=== PATIENT | female | born 2000 ===

== ENCOUNTER → 2023-07-06 | Outpatient (CLI) | payer SELFPAY ==
[~2023-07-06] VITALS: Ht 160 cm; Wt 73.9 kg
[~2023-07-06] MED LIST: PREN1TAB79 PO
== END | disposition home or self-care (01) ==
LOC: PREOP 10:34
PROVIDERS: ATTEND Obstetrics & Gynecology
DX: Z01.818 Encounter for other preprocedural examination (principal)

== ENCOUNTER 2023-07-13 07:04 | Inpatient (IN) | payer OTHER ==
[~2023-07-13] VITALS: Ht 160 cm; Wt 74.9 kg
[2023-07-13] VITALS (10 sets, daily range): BP systolic 100–123; BP diastolic 57–77
[2023-07-13 08:05] LABS: AMORPHOUS SEDIMENT,UR FEW AMOR URATES /LPF; BACTERIA,URINE TRACE /HPF; BILIRUBIN,URINE NEGATIVE (NEGATIVE); CLARITY,URINE CLEAR; COLOR,URINE YELLOW; GLUCOSE, URINE (UA) NEGATIVE (NEGATIVE); KETONES,URINE NEGATIVE (NEGATIVE); LEUKOCYTE ESTERASE ,URINE NEGATIVE (NEGATIVE); NITRITE,URINE NEGATIVE (NEGATIVE); PROTEIN,URINE NEGATIVE (NEGATIVE); WBC,URINE RARE /HPF
[2023-07-13] MEDS: LACTATED RINGERS 1,000 ML 1,000 ML IV SCH ×2 (08:33→11:44)
[2023-07-13 10:11] LABS: HEMATOCRIT 40 % (35-52); HEMOGLOBIN 13.6 g/dL (11.5-16.0); MEAN CORPUSCULAR HEMOGLOBIN 30 pg (25-34); MEAN CORPUSCULAR HGB CONC 34 g/dL (32-36); MEAN CORPUSCULAR VOLUME 88 fL (80-99); MEAN PLATELET VOLUME 11.7 fL (9.0-12.2); PLATELET COUNT 205 10^3/uL (130-400); WHITE BLOOD COUNT 7.4 10^3/uL (4.3-11.0)
[2023-07-13] MEDS ORDERED: LACTATED RINGERS 1,000 ML 1,000 ML IV PRN (10:15)
[2023-07-13] MEDS ORDERED: METOCLOPRAMIDE INJ 10 MG/2 ML IV ONE (10:15)
[2023-07-13] MEDS ORDERED: CATHETER FLUSH 10 ML SYR IV SCH (10:15)
[2023-07-13] MEDS ORDERED: FAMOTIDINE INJ 20MG/2ML VIAL IV ONE (10:15)
[2023-07-13] MEDS ORDERED: CITRIC ACID/SODIUM CITRATE ORAL SOLN 30 ML PO ONE (10:15)
[2023-07-13] MEDS ORDERED: fentaNYL INJECTION 100 MCG/2 ML VIAL ONE (10:29)
[2023-07-13] MEDS ORDERED: OXYTOCIN DRIP PRE-MIX 1,000 ML IV ONE (10:30)
[2023-07-13] MEDS ORDERED: ceFAZolin INJECTION 2,000 MG in NS (IVPB) 50 ML 50 ML IV ONE ×2 (11:00→12:45)
--- NOTE | 2023-07-13 11:00 | History & Physical-OB/GYN ---
History of Present Illness History of Present Illness Reason for visit/HPI at 39wks presents with tocos since 1am. She has had two prior C- sections. Her cervix made slight change, so we will proceed with a RLTCS. She declines permanent sterilization. Date of Admission Jul 13, 2023 at 09:57 Date Seen by a Provider: Jul 13, 2023 Time Seen by a Provider: 10:30 I consulted on this patient on 07/13/23 10:30 Attending Physician No,Local Physician Admitting Physician Admitting Physician: Conner Ashley DO Attending Physician: Conner Ashley DO Consult Allergies and Home Medications Allergies Coded Allergies: No Known Allergies (Verified Allergy, Unknown, 07/09/23) Patient Home Medication List Home Medication List Reviewed: Yes Vit W-Ca,Fe,FA(<1 mg) ( Vitamins) 27 Mg Iron-800 Mcg Tablet, 1 EACH PO, (Reported) Entered as Reported by: Anne German on 07/09/23 0908 Past [id number] Hx Patient Social History Smoking Status: Never a Smoker 2nd Hand Smoke Exposure: No Seasonal Allergies Seasonal Allergies: No Surgeries Yes Appendectomy, Section Respiratory No Cardiovascular No Reproductive System Expected Date of Delivery: Jul 20, 2023 Hx : 3 Hx Para: 2 Genitourinary No Gastrointestinal Yes (FATTY LIVER) Musculoskeletal No Endocrine History of Endocrine Disorders: No HEENT History of HEENT Disorders: No Cancer No Psychosocial History of Psychiatric Problem: No Integumentary History of Skin or Integumenta: No Blood Transfusions History of Blood Disorders: No Review of Systems Constitutional: see HPI EENTM: see HPI Respiratory: see HPI Cardiovascular: see HPI Gastrointestinal: see HPI Genitourinary: see HPI Musculoskeletal: see HPI Skin: see HPI Psychiatric/Neurological: No Symptoms Reported, See HPI All Other Systems Reviewed Negative Unless Noted: Yes Physical Exam Physical Exam Vital Signs Vital Signs Date Time Temp Pulse Resp B/P (MAP) Pulse Ox O2 Delivery O2 Flow Rate FiO2 07/13/23 07:43 36.6 78 18 119/73 98 Room Air Capillary Refill : Less Than 3 Seconds Labs Laboratory Tests 07/13/23 07:30: Urine Color YELLOW, Urine Clarity CLEAR, Urine pH 7.0, Urine Specific [place] 1.015L, Urine Protein NEGATIVE, Urine Glucose (UA) NEGATIVE, Urine Ketones NEGATIVE, Urine Nitrite NEGATIVE, Urine Bilirubin NEGATIVE, Urine Urobilinogen 0.2, Urine Leukocyte Esterase NEGATIVE, Urine RBC (Auto) NEGATIVE, Urine RBC NONE, Urine WBC RARE, Urine Squamous Epithelial Cells 10-25H, Urine Crystals PRESENTH, Urine Amorphous Sediment FEW DARRON URATESH, Urine Bacteria TRACE, Urine Casts NONE, Urine Mucus SMALLH, Urine Culture Indicated NO 07/13/23 08:28: White Blood Count 7.4, Red Blood Count 4.51, Hemoglobin 13.6, Hematocrit 40, Mean Corpuscular Volume 88, Mean Corpuscular Hemoglobin 30, Mean Corpuscular Hemoglobin Concent 34, Red Cell Distribution Width 13.6, Platelet Count 205, Mean Platelet Volume 11.7 General Appearance: No Apparent Distress Respiratory: No Respiratory Distress Cardiovascular: Regular Rate, Rhythm Abdominal: non tender, soft Pelvic Exam: deferred Extremity: No Calf Tenderness Assessment/Plan Assessment and Plan IUP at 39wks prior x2 in early labor. Proceed with RLTCS. Dr Khan to assist. Admission Diagnosis IUP at 39wks. Previous x2, requests repeat LTCS. Early labor. GBS+. Language barrier. Admission Status: Inpatient Order (span 2 midnights) Reason for Inpatient Admission: IUP at 39wks. Early labor. Prior C/S x2, requesting repeat LTCS. CONNER ASHLEY DO Jul 13, 2023 11:00
[2023-07-13] MEDS ORDERED: ONDANSETRON INJECTION 4 MG/2 ML (SDV) ONE (11:31)
[2023-07-13] MEDS ORDERED: BUPIVACAINE 0.5% 30 ML VIAL ONE (11:31)
[2023-07-13] MEDS: OXYTOCIN DRIP PRE-MIX 500 ML IV SCH ×2 (11:40→12:00)
[2023-07-13] MEDS ORDERED: dexAMETHasone INJ 10 MG/ML 1 ML VIAL ONE (12:07)
[2023-07-13] MEDS ORDERED: NALOXONE 0.4 MG/ML 1 ML VIAL IV PRN (12:45)
[2023-07-13] MEDS ORDERED: Tetanus/Diphtheria/Pertussis (Acell) ADULT Vaccine 0.5 ML IM SCH (12:45)
[2023-07-13] MEDS ORDERED: MEASLES, MUMPS, RUBELLA VACCINE (MMR) SC SCH (12:45)
--- NOTE | 2023-07-13 12:47 | Cesarean Section Operative ---
TAM MCGINNIS MD,RESIDENT 07/13/23 1247: Procedure Procedure Note Pre-operative Diagnosis: Doris edwards a (23 /Para 3 / 2, Gestational Age (wks)39 with IUP at 39, previous x2, requesting RLTCS, GBS +, language barrier Post-operative Diagnosis: Early labor Procedure: Repeat low transverse section Physician: Conner Ashley DO Research Pharmacist: RAS LIVINGSTON Estimated blood loss: 250 mL Disposition: Stable Findings: Viable female infant, Apgars 8, 9, weight 6 lbs 14oz, intact placenta, 3vc, normal appearing uterus, tubes, and ovaries. Indications:Doris edwards a (23 /Para 3 / 2,Gestational Age (wks)39 presenting for early labor. Procedure Details: The patient was seen in pre-op and the procedure was discussed with the patient in full, including the risks, benefits, and alternatives. All questions were answered. The patient was taken to the operating room and a time out was performed, verifying patient and procedure. After spinal anesthesia was placed by our anesthesia colleagues, the patient was placed in the dorsal supine with leftward tilt for uterine displacement.~ Her abdomen was then prepped and draped in the typical sterile fashion. A Pfannenstiel skin incision was made using a scalpel and carried down through the underlying fascia. The fascia was incised in the midline and tented up using Roshan clamps. On both the inferior and superior fascia side the rectus muscle was dissected off bluntly and sharply using Velazquez scissors. The peritoneum was identified and entered bluntly in the midline. This was then stretched laterally using manual strength. After entering the abdominal cavity and confirming lack of intraperitoneal adhesions, the lower uterine segment was visualized. A bladder flap was created with the use of Metzenbaum scissors.~ A scalpel was utilized to make a low transverse uterine incision. Amniotomy was performed with an Allis clamp with return of clear fluid. The 's head was grasped and brought to the level of the incision. Fundal pressure was applied and was delivered without difficulty, with a nuchal cord x1. Mouth and nares were suctioned with bulb suction. After the umbilical cord was clamped and cut, the was handed off to the pediatric staff. A sample of cord blood was then obtained. The placenta was delivered intact via uterine massage. The uterus was exteriorized and cleared of all clots and debris. The uterine incision was closed using 0 Vicryl in a running locked fashion. A second imbricated layer was placed using 0 Vicryl in a running fashion as well. The uterus was flexed forward and the posterior rectouterine space was inspected and cleared of all clots and debris. Again the hysterotomy site was examined and hemostasis was observed. The bilateral tubes and ovaries appeared normal. The uterus was placed back into the abdominal cavity and abdominal gutters were cleared of all clots and debris. A final check of the uterine incision showed it to be hemostatic. The peritoneum was closed using 3-0 Vicryl in a running fashion. The fascia was closed with 2.0 Stratafix in a running fashion. The subcutaneous space was hemostatic. The subcutaneous space was closed with 3-0 Vicryl in several single interrupted stitches. The skin was then closed using 4-0 Monocryl in a running subcuticular fashion. The skin edges were reapproximated together and were hemostatic. A pressure dressing was applied. All sponge, lap and needle counts were correct at the end of the procedure per nursing. Vitals - Labs Vital Signs - I&O Vital Signs Date Time Temp Pulse Resp B/P (MAP) Pulse Ox O2 Delivery O2 Flow Rate FiO2 07/13/23 07:43 36.6 78 18 119/73 98 Room Air Labs Laboratory Tests 07/13/23 07:30: Urine Color YELLOW, Urine Clarity CLEAR, Urine pH 7.0, Urine Specific [place] 1.015L, Urine Protein NEGATIVE, Urine Glucose (UA) NEGATIVE, Urine Ketones NEGATIVE, Urine Nitrite NEGATIVE, Urine Bilirubin NEGATIVE, Urine Urobilinogen 0.2, Urine Leukocyte Esterase NEGATIVE, Urine RBC (Auto) NEGATIVE, Urine RBC NONE, Urine WBC RARE, Urine Squamous Epithelial Cells 10-25H, Urine Crystals PRESENTH, Urine Amorphous Sediment FEW DARRON URATESH, Urine Bacteria TRACE, Urine Casts NONE, Urine Mucus SMALLH, Urine Culture Indicated NO 07/13/23 08:28: White Blood Count 7.4, Red Blood Count 4.51, Hemoglobin 13.6, Hematocrit 40, Mean Corpuscular Volume 88, Mean Corpuscular Hemoglobin 30, Mean Corpuscular Hemoglobin Concent 34, Red Cell Distribution Width 13.6, Platelet Count 205, Mean Platelet Volume 11.7 CONNER ASHLEY DO 07/13/23 1251: Procedure Procedure Note I was present during the entire procedure. TAM MCGINNIS MD,RESIDENT Jul 13, 2023 12:47 CONNER ASHLEY DO Jul 13, 2023 12:51
[2023-07-13 14:13] LABS: BASOPHILS % (AUTO) 0 % (0-10); EOSINOPHILS % (AUTO) 0 % (0-10); HEMATOCRIT 41 % (35-52); HEMOGLOBIN 14.3 g/dL (11.5-16.0); LYMPHOCYTES # (AUTO) 1.2 10^3/uL (1.0-4.0); LYMPHOCYTES % (AUTO) 10 % (12-44); MEAN CORPUSCULAR HEMOGLOBIN 30 pg (25-34); MEAN CORPUSCULAR HGB CONC 35 g/dL (32-36); MEAN CORPUSCULAR VOLUME 87 fL (80-99); MEAN PLATELET VOLUME 10.6 fL (9.0-12.2); MONOCYTES # (AUTO) 0.3 10^3/uL (0.0-1.0); MONOCYTES % (AUTO) 2 % (0-12); NEUTROPHILS # (AUTO) 10.3 10^3/uL (1.8-7.8); NEUTROPHILS % (AUTO) 87 % (42-75); PLATELET COUNT 189 10^3/uL (130-400); WHITE BLOOD COUNT 11.8 10^3/uL (4.3-11.0)
[2023-07-13] MEDS: CATHETER FLUSH 10 ML SYR IV SCH (16:00)
[2023-07-13] MEDS: oxyCODONE IMMEDIATE RELEASE 5 MG TABLET PO PRN ×2 (16:12→20:27)
[2023-07-13] MEDS: IBUPROFEN 800 MG TABLET PO SCH (17:22)
[2023-07-13] MEDS: DOCUSATE SODIUM 100 MG CAPSULE PO SCH (20:20)
[2023-07-14] VITALS (7 sets, daily range): BP systolic 105–115; BP diastolic 55–65
[2023-07-14] MEDS: oxyCODONE IMMEDIATE RELEASE 5 MG TABLET PO PRN ×4 (01:00→17:23)
[2023-07-14] MEDS: IBUPROFEN 800 MG TABLET PO SCH ×3 (01:00→17:23)
[2023-07-14 06:06] LABS: BASOPHILS % (AUTO) 0 % (0-10); EOSINOPHILS % (AUTO) 0 % (0-10); HEMATOCRIT 37 % (35-52); HEMOGLOBIN 12.6 g/dL (11.5-16.0); LYMPHOCYTES # (AUTO) 2.2 10^3/uL (1.0-4.0); LYMPHOCYTES % (AUTO) 19 % (12-44); MEAN CORPUSCULAR HEMOGLOBIN 30 pg (25-34); MEAN CORPUSCULAR HGB CONC 34 g/dL (32-36); MEAN CORPUSCULAR VOLUME 87 fL (80-99); MEAN PLATELET VOLUME 10.8 fL (9.0-12.2); MONOCYTES # (AUTO) 0.9 10^3/uL (0.0-1.0); MONOCYTES % (AUTO) 8 % (0-12); NEUTROPHILS # (AUTO) 8.1 10^3/uL (1.8-7.8); NEUTROPHILS % (AUTO) 73 % (42-75); PLATELET COUNT 203 10^3/uL (130-400); WHITE BLOOD COUNT 11.1 10^3/uL (4.3-11.0)
[2023-07-14] MEDS: CATHETER FLUSH 10 ML SYR IV SCH ×2 (07:00→09:02)
[2023-07-14] MEDS: DOCUSATE SODIUM 100 MG CAPSULE PO SCH ×2 (08:46→21:35)
--- NOTE | 2023-07-14 09:22 | Postpartum Progress Note ---
Post Op Post-operative Day #[1] Subjective: Patient is without complaints. Ambulating, voiding after slade removed. Tolerating a regular diet without nausea or vomiting. Normal lochia. Pain is well controlled with oral pain medications. Passing flatus. [Bottle] feeding. [] Objective: [] Physical Exam: General - Alert and oriented, no apparent distress Abdomen - Soft, appropriately tender to palpation, non-distended, fundus firm at umbilicus Incision - clean, dry and intact; no erythema or induration, no drainage Extremities - no edema, negative Francisco's bilaterally Assessment: [] post-operative day # [1], status post [RLTCS]. Recovering well, hemodynamically stable Plan: Routine post-operative care. Encourage breast feeding. Encourage ambulation. VTE prophylaxis: SCDs. Ferrous sulfate supplementation. Plan for discharge [tomorrow] Vitals - Labs Vital Signs - I&O Vital Signs Date Time Temp Pulse Resp B/P (MAP) Pulse Ox O2 Delivery O2 Flow Rate FiO2 07/14/23 08:40 36.8 77 16 107/58 (74) 98 Room Air 07/14/23 06:18 37.1 69 16 108/61 (77) 98 Room Air 07/14/23 03:11 36.4 74 16 115/55 (75) 97 Room Air 07/13/23 23:17 36.2 68 16 120/58 (78) 99 Room Air 07/13/23 17:13 Room Air 07/13/23 15:55 36.8 70 16 109/57 (74) 98 Room Air 07/13/23 13:36 36.9 20 123/72 (89) 100 Room Air 07/13/23 13:36 Room Air 07/13/23 13:21 36.7 20 122/61 (81) 100 Room Air 07/13/23 13:21 Room Air 07/13/23 13:06 36.6 20 117/77 (90) 100 Room Air 07/13/23 13:06 Room Air 07/13/23 12:51 Room Air 07/13/23 12:51 36.4 18 115/61 (79) 100 Room Air 07/13/23 12:36 36.2 18 100/59 (73) 100 Room Air 07/13/23 12:36 Room Air I & O 07/14/23 07:00 Intake Total 4300 ml Output Total 2300 ml Balance 2000 ml Labs Laboratory Tests 07/13/23 14:05: White Blood Count 11.8H, Red Blood Count 4.76, Hemoglobin 14.3, Hematocrit 41, Mean Corpuscular Volume 87, Mean Corpuscular Hemoglobin 30, Mean Corpuscular Hemoglobin Concent 35, Red Cell Distribution Width 13.2, Platelet Count 189, Mean Platelet Volume 10.6, Immature Granulocyte % (Auto) 0, Neutrophils (%) (Auto) 87H, Lymphocytes (%) (Auto) 10L, Monocytes (%) (Auto) 2, Eosinophils (%) (Auto) 0, Basophils (%) (Auto) 0, Neutrophils # (Auto) 10.3H, Lymphocytes # (Auto) 1.2, Monocytes # (Auto) 0.3, Eosinophils # (Auto) 0.0, Basophils # (Auto) 0.0, Immature Granulocyte # (Auto) 0.0 07/14/23 05:47: White Blood Count 11.1H, Red Blood Count 4.22, Hemoglobin 12.6, Hematocrit 37, Mean Corpuscular Volume 87, Mean Corpuscular Hemoglobin 30, Mean Corpuscular Hemoglobin Concent 34, Red Cell Distribution Width 13.5, Platelet Count 203, Mean Platelet Volume 10.8, Immature Granulocyte % (Auto) 0, Neutrophils (%) (Auto) 73, Lymphocytes (%) (Auto) 19, Monocytes (%) (Auto) 8, Eosinophils (%) (Auto) 0, Basophils (%) (Auto) 0, Neutrophils # (Auto) 8.1H, Lymphocytes # (Auto) 2.2, Monocytes # (Auto) 0.9, Eosinophils # (Auto) 0.0, Basophils # (Auto) 0.0, Immature Granulocyte # (Auto) 0.1 CONNER WILSON DO Jul 14, 2023 09:22
--- NOTE | 2023-07-14 11:31 | Anesthesia-Regional Post-Op ---
Regional Patient Condition Mental Status: Alert, Oriented x3 Circulation: Same as Pre-Op Headache: Absent Sensation: Full Recovery Motor Block: Absent Post Op Complications Complications None Follow Up Care/Instructions Patient Instructions None needed. Anesthesia/Patient Condition Patient is doing well, no complaints, stable vital signs, no apparent adverse anesthesia problems. No complications reported per nursing. KALI FERNANDEZ CRNA Jul 14, 2023 11:31
[2023-07-14] MEDS ORDERED: IBUPROFEN 800 MG TABLET PO SCH (12:45)
[2023-07-15] MEDS: IBUPROFEN 800 MG TABLET PO SCH ×2 (01:48→09:29)
[2023-07-15 04:45] VITALS: BP 107/58
[2023-07-15] MEDS: oxyCODONE IMMEDIATE RELEASE 5 MG TABLET PO PRN ×3 (04:58→14:20)
[2023-07-15] MEDS ORDERED: OXC5T PO (09:13)
--- NOTE | 2023-07-15 09:20 | Discharge Inst-Women's Service ---
Discharge Inst-Women's Serv Depart Medication/Instructions New, Converted or Re-Newed RX: Transmitted to Pharmacy Instructions F/U with OB in 1wk. Nothing per vagina for 6wks. No driving while on narcotics (or the first week). No bath for 6wks. Rx for Percocet. Continue Ibuprofen 800mg po q8hrs prn. Final Diagnosis POD#2 s/p RLTCS. Problems Reviewed?: Yes Consults/Follow Up Additional Follow Up: Yes Activity Activity: Activity as Tolerated (See instructions above.) Driving Instructions: No Driving for 1 Week NO SMOKING: NO SMOKING Diet Discharge Diet: No Restrictions Return to The Hospital For: Fever, chills, severe pain. Symptoms to Report to : Bleeding Excessive, Pain Increased, Fever Over 101 Degrees F For Any Problems or Questions: Contact Your Physician Skin/Wound Care Infection Signs and Symptoms: Increased Redness, Foul Odor of Wound, Increased Drainage Operative Area Clean and Dry: Keep Incision Clean/Dry Bathing Instructions: CONNER Moralez DO Jul 15, 2023 09:20
--- NOTE | 2023-07-15 09:23 | Postpartum Progress Note ---
Post Op Post-operative Day #[2] Subjective: Patient is without complaints. Ambulating, voiding after slade removed. Tolerating a regular diet without nausea or vomiting. Normal lochia. Pain is well controlled with oral pain medications. Passing flatus. [Breast and bottle] feeding. [] Objective: [] Physical Exam: General - Alert and oriented, no apparent distress Abdomen - Soft, appropriately tender to palpation, non-distended, fundus firm at umbilicus Incision - clean, dry and intact; no erythema or induration, no drainage Extremities - no edema, negative Francisco's bilaterally Assessment: [] post-operative day # [2], status post [RLTCS]. Recovering well, hemodynamically stable Plan: Routine post-operative care. Encourage breast feeding. Encourage ambulation. VTE prophylaxis: SCDs. Ferrous sulfate supplementation. Plan for discharge [today] Vitals - Labs Vital Signs - I&O Vital Signs Date Time Temp Pulse Resp B/P (MAP) Pulse Ox O2 Delivery O2 Flow Rate FiO2 07/15/23 04:45 36.8 77 16 107/58 (74) 98 Room Air 07/14/23 21:15 36.6 80 18 110/59 (76) 97 Room Air 07/14/23 17:11 36.7 77 16 111/65 (80) 98 Room Air 07/14/23 12:50 36.6 73 16 105/59 (74) 98 Room Air I & O 07/15/23 07:00 Intake Total 1000 ml Output Total 100 ml Balance 900 ml CONNER WILSON DO Jul 15, 2023 09:23
[2023-07-15] MEDS: DOCUSATE SODIUM 100 MG CAPSULE PO SCH (09:29)
[2023-07-15 09:30] VITALS: BP 115/66
[2023-07-15] MEDS ORDERED: IBUP-1780 PO (09:35)
[2023-07-15] MEDS ORDERED: DOCU100C37 PO (09:35)
== END 2023-07-15 14:30 | disposition home or self-care (01) | DRG 788 ==
LOC: WSo 07:04 → LDRP 07:04 → WSo 09:56 → LDRP 09:57
PROVIDERS: ADMIT Obstetrics & Gynecology; ATTEND Obstetrics & Gynecology
PROC: 10D00Z1 Extraction of Products of Conception, Low, Open Approach (ICD-10-PCS; principal; 2023-07-13 12:00)
DX: O34.211 Maternal care for low transverse scar from previous cesarean delivery (principal); Z3A.39 39 weeks gestation of pregnancy; Z37.0 Single live birth; O99.824 Streptococcus B carrier state complicating childbirth; O69.81X0 Labor and delivery complicated by cord around neck, without compression, not applicable or unspecified
CPT/HCPCS: 36415; 81000; 85025; 85027; 86780; 86850; 86900; 86901; 94664; 99213